=== PATIENT | male | born 1945 | race Caucasian/White ===

== ENCOUNTER 2020-12-27 14:15 | Emergency (ER) | payer OTHER ==
--- NOTE | 2020-12-27 15:48 | EDM.PDOC ---
ED HPI GENERAL MEDICAL PROBLEM - General Chief Complaint: Respiratory Problem Stated Complaint: POSSIBLE COVID-BARELY ABLE TO BREATHE,WEAK Time Seen by Provider: 12/27/20 15:46 Source of Information: Reports: Patient, RN Notes Reviewed History Limitations: Reports: No Limitations - History of Present Illness INITIAL COMMENTS - FREE TEXT/NARRATIVE: 72-year-old gentleman presents for about 2 weeks does have a spouse he has been living with that is positive for COVID-19. He did not vaccinate has not had any fevers - Related Data Allergies Allergy/AdvReac Type Severity Reaction Status Date / Time No Known Allergies Allergy Verified 12/27/20 15:32 Home Meds: Home Meds Cetirizine HCl [All Day Allergy] 10 mg PO DAILY PRN 06/11/14 [History] Fluticasone Propionate [Flovent HFA 100 mcg] 1 inh FILIPPO DAILY 06/11/14 [History] Omeprazole 20 mg PO DAILY 06/11/14 [History] Simvastatin [Zocor] 5 mg PO BEDTIME 06/11/14 [History] Past Medical History - Infectious Disease History Infectious Disease History: Reports: Chicken Pox, Measles, Mumps, Pertussis (Whooping Cough) Social & Family History - Tobacco Use Tobacco Use Status *Q: Never Tobacco User ED ROS GENERAL - Review of Systems Review Of Systems: See Below Constitutional: Reports: Weakness, Fatigue. Denies: Fever HEENT: Reports: No Symptoms Respiratory: Reports: Shortness of Breath, Cough Cardiovascular: Reports: Dyspnea on Exertion GI/Abdominal: Reports: No Symptoms ED EXAM, GENERAL - Physical Exam Exam: See Below Exam Limited By: No Limitations General Appearance: Alert, WD/WN, No Apparent Distress Respiratory/Chest: No Respiratory Distress, Lungs Clear, Normal Breath Sounds, No Accessory Muscle Use, Chest Non-Tender Cardiovascular: Regular Rate, Rhythm, No Murmur GI/Abdominal: Soft, Non-Tender Course - Vital Signs Last Recorded V/S: Last Vital Signs Temp 97.1 F 12/27/20 15:39 Pulse 67 12/27/20 16:43 Resp 20 12/27/20 15:39 BP 115/67 12/27/20 16:43 Pulse Ox 92 L 12/27/20 16:43 - Orders/Labs/Meds Orders: Active Orders 24 hr Category Date Time Status Nurse Communication: Isolation [RC] ASDIRECTED Care 12/27/20 15:46 Active Isolation [COMM] Stat Oth 12/27/20 15:46 Ordered Labs: Laboratory Tests 12/27/20 12/27/20 12/27/20 Range/Units 15:46 15:51 16:00 WBC 7.2 (4.5-11.0) K/uL RBC 4.42 (4.30-5.90) M/uL Hgb 13.1 (12.0-15.0) g/dL Hct 38.3 L (40.0-54.0) % MCV 87 (80-98) fL MCH 30 (27-31) pg MCHC 34 (32-36) % Plt Count 274 (150-400) K/uL Neut % (Auto) 67.2 H (36-66) % Lymph % (Auto) 14.5 L (24-44) % Harney % (Auto) 16.9 H (2-6) % Eos % (Auto) 0.8 L (2-4) % Baso % (Auto) 0.6 (0-1) % Sodium 135 L (140-148) mmol/L Potassium 3.8 (3.6-5.2) mmol/L Chloride 99 L (100-108) mmol/L Carbon Dioxide 29 (21-32) mmol/L Anion Gap 10.8 (5.0-14.0) mmol/L BUN 15 (7-18) mg/dL Creatinine 0.9 (0.8-1.3) mg/dL Est Cr Clr Drug Dosing 77.84 mL/min Estimated GFR (MDRD) > 60 (>60) Glucose 106 (74-106) mg/dL Lactic Acid (0.4-2.0) mmol/L Calcium 8.2 L (8.5-10.1) mg/dL Total Bilirubin 1.9 H (0.2-1.0) mg/dL Direct Bilirubin 0.47 H (0.0-0.2) mg/dL Indirect Bilirubin 1.43 AST 30 (15-37) U/L ALT 63 (12-78) U/L Alkaline Phosphatase 95 (46-116) U/L Total Protein 6.8 (6.4-8.2) g/dL Albumin 3.1 L (3.4-5.0) g/dL Globulin 3.7 H (2.3-3.5) g/dL Albumin/Globulin Ratio 0.8 L (1.2-2.2) Procalcitonin ng/mL SARS-CoV-2 RNA (ANIL) Positive H (NEGATIVE) 12/27/20 12/27/20 Range/Units 16:00 16:00 WBC (4.5-11.0) K/uL RBC (4.30-5.90) M/uL Hgb (12.0-15.0) g/dL Hct (40.0-54.0) % MCV (80-98) fL MCH (27-31) pg MCHC (32-36) % Plt Count (150-400) K/uL Neut % (Auto) (36-66) % Lymph % (Auto) (24-44) % Harney % (Auto) (2-6) % Eos % (Auto) (2-4) % Baso % (Auto) (0-1) % Sodium (140-148) mmol/L Potassium (3.6-5.2) mmol/L Chloride (100-108) mmol/L Carbon Dioxide (21-32) mmol/L Anion Gap (5.0-14.0) mmol/L BUN (7-18) mg/dL Creatinine (0.8-1.3) mg/dL Est Cr Clr Drug Dosing mL/min Estimated GFR (MDRD) (>60) Glucose (74-106) mg/dL Lactic Acid 1.0 (0.4-2.0) mmol/L Calcium (8.5-10.1) mg/dL Total Bilirubin (0.2-1.0) mg/dL Direct Bilirubin (0.0-0.2) mg/dL Indirect Bilirubin AST (15-37) U/L ALT (12-78) U/L Alkaline Phosphatase (46-116) U/L Total Protein (6.4-8.2) g/dL Albumin (3.4-5.0) g/dL Globulin (2.3-3.5) g/dL Albumin/Globulin Ratio (1.2-2.2) Procalcitonin < 0.05 ng/mL SARS-CoV-2 RNA (ANIL) (NEGATIVE) Departure - Departure Time of Disposition: 17:12 Disposition: Home, Self-Care 01 Condition: Fair Clinical Impression: COVID-19 - Discharge Information Instructions: 10 Things You Can Do to Manage Your COVID-19 Symptoms at Home - [facility] (10/14/2020) Referrals: PCP,None [Primary Care Provider] - Forms: ED Department Discharge Additional Instructions: Continue with your regular medications, please followup with your primary care provider in 5-7 days if not better, please call return to the emergency department with worsening of symptoms. Sepsis Event Note (ED) - Evaluation Sepsis Screening Result: No Definite Risk - Focused Exam Vital Signs: Vital Signs Temp Pulse Resp BP Pulse Ox 12/27/20 16:43 67 115/67 92 L 12/27/20 15:39 97.1 F 79 20 118/83 92 L 12/27/20 15:19 97.1 F 79 20 118/83 92 L - My Orders Last 24 Hours: My Active Orders 12/27/20 15:46 Nurse Communication: Isolation [RC] ASDIRECTED Isolation [COMM] Stat - Assessment/Plan Last 24 Hours: My Active Orders 12/27/20 15:46 Nurse Communication: Isolation [RC] ASDIRECTED Isolation [COMM] Stat Plan: Assessment Acuity = acute Site and laterality = viral syndrome Etiology = COVID-19 Manifestations = weakness Location of injury = Home Lab values = CBC CMP unremarkable, however bilirubin is elevated 1.9 consistent hyperbilirubinemia, Covid is positive lactic acid at 1.0 procalcitonin minimally Plan Symptomatic care at this time he is 14 days out from symptoms so is not a candidate for monoclonal antibody This note was dictated using [employer] voice recognition software please call with any questions on syntax or grammar.
[2020-12-27 16:43] VITALS: BP 115/67; PULSE 67
== END 2020-12-27 17:42 | disposition home or self-care (01) ==
LOC: JP.ED 14:15
DX: U07.1 COVID-19 (principal)
CPT/HCPCS: 36415; 80048; 80076; 83605; 84145; 85025; 99284; U0002